=== PATIENT | male | born 1965 | race Caucasian/White ===

== ENCOUNTER 2022-07-26 13:23 | Emergency (ER) | payer OTHER ==
[~2022-07-26] VITALS: Ht 180.3 cm; Wt 120.2 kg
--- NOTE | 2022-07-26 13:29 | NUR ---
Placed in room 8 . Placed on panel monitor, blood pressure machine and pulse oximeter. To gown for exam. Side rails up. Report given to .
[2022-07-26 13:36] VITALS: BP_SYST 120
--- NOTE | 2022-07-26 13:51 | NUR ---
RECEIVED REPORT FROM PATRICIA AND WILL ASSUME CARE OF PT. PT HAVING BLOOD DRAWN AND EKG BEING DONE AT THIS TIME.
--- NOTE | 2022-07-26 13:55 | NUR ---
PT STATES THAT DR RESENDIZ TOLD HIM TO COME TO ER YESTERDAY DUE TO NEW ONSET AFIB, PT STATES THAT HE DIDN'T WANT TO COME BUT HIS MADE HIM. STILL HAVING SOME PALPITATIONS AND FLUTTERING IN CHEST. DENIES ANY CHEST PAIN. PT STATES DR RESENDIZ REFERRED HIM TO A [facility] BUT HE HAS NOT MADE AN APPT YET.
[2022-07-26] MEDS ORDERED: dilTIAZem HCL IVP 5 MG/ML VIAL IVP ONE (14:00)
[2022-07-26] MEDS ORDERED: DILTIAZEM HCL 60 MG TABLET PO ONE (14:00)
[2022-07-26 14:11] VITALS: BP_SYST 134
--- NOTE | 2022-07-26 14:42 | NUR ---
HEPLOCK STARTED AND MEDS GIVEN ORDERED. ALL QUESTIONS ANSWERED, PT DENIES ANY PAIN
[2022-07-26 14:45] LABS: BASOPHILS # (AUTO) 0.2 K/uL (0.0-0.2); BASOPHILS % (AUTO) 1.2 % (0.0-2.0); EOSINOPHILS # (AUTO) 0.9 K/uL (0.0-0.4); EOSINOPHILS % (AUTO) 6.6 % (0.0-4.0); HEMOGLOBIN 14.9 g/dL (14.0-18.0); LYMPHOCYTES # (AUTO) 2.4 K/uL (1.0-5.5); LYMPHOCYTES % (AUTO) 18.1 % (20.5-51.5); MEAN CORPUSCULAR HEMOGLOBIN 30 pg (27-31); MEAN CORPUSCULAR HGB CONC 34 % (32-36); MEAN CORPUSCULAR VOLUME 88 fL (79.0-98.0); MONOCYTES # (AUTO) 1.2 K/uL (0.0-1.0); MONOCYTES % (AUTO) 9.4 % (1.7-9.3); NEUTROPHILS # (AUTO) 8.4 K/uL (1.8-7.7); NEUTROPHILS % (AUTO) 64.7 % (40.0-70.0); PLATELET COUNT (AUTO) 257 K/uL (130-430); RED BLOOD CELL COUNT(AUTO) 4.98 MIL/uL (4.2-6.2); RED CELL DISTRIBUTION WIDTH 14.3 % (9.0-15.0)
[2022-07-26 14:55] LABS: ANION GAP 7 (5-15); CHLORIDE 105 mmol/L (98-107); CREATININE 1.26 mg/dL (0.55-1.30); GLUCOSE 123 mg/dL (70-99); UREA NITROGEN, BLOOD 24 mg/dL (8-21)
[2022-07-26] MEDS ORDERED: SEMA0.25 SQ (15:00)
[2022-07-26] MEDS ORDERED: LOVA40TA75 PO (15:00)
[2022-07-26] MEDS ORDERED: MONT-40 PO (15:00)
[2022-07-26] MEDS ORDERED: EFF37 PO (15:00)
[2022-07-26] MEDS ORDERED: CARV12.548 PO (15:00)
[2022-07-26] MEDS ORDERED: FEXO-25 PO (15:00)
[2022-07-26] MEDS ORDERED: INSU100V9 SQ (15:00)
[2022-07-26] MEDS ORDERED: INSU100I40 (15:00)
[2022-07-26] MEDS ORDERED: CAPT25TA3 PO (15:00)
[2022-07-26] MEDS ORDERED: APIX5TAB4 PO (15:00)
[2022-07-26] MEDS ORDERED: METF-518 PO (15:00)
[2022-07-26] MEDS ORDERED: ALBMDI INH (15:00)
[2022-07-26] MEDS ORDERED: EMPA25TA PO (15:00)
--- NOTE | 2022-07-26 15:00 | NUR ---
Medication reconciliation completed with information provided by PATIENT. Any prior medication reconciliation on file was reviewed and corrected.
[2022-07-26 15:01] LABS: INR 1.1 (0.80-1.20)
[2022-07-26 15:04] LABS: ALANINE AMINOTRANSFERASE 19 U/L (12-78); ALBUMIN 3.5 g/dL (3.4-4.8); ASPARTATE AMINOTRANSFERASE 12 U/L (10-37); GFR AFRICAN AMERICAN 76 mL/min (>90); TOTAL BILIRUBIN 0.5 mg/dL (0.0-1.0)
[2022-07-26] MEDS ORDERED: DILT180C66 PO (15:28)
--- NOTE | 2022-07-26 15:42 | NUR ---
Patient given written and verbal discharge instructions and verbalizes understanding. ER MD discussed with patient the results and treatment provided. Patient in stable condition. ID arm band removed. IV catheter removed intact and dressing applied, no active bleeding. Rx of CARDIZEM CD given. Patient educated on pain management and to follow up with PMD. Pain Scale 0/10. Opportunity for questions provided and answered. Medication side effect fact sheet provided.
[2022-07-28] MEDS ORDERED: METF-380 PO (18:16)
[2022-07-28] MEDS ORDERED: LOVA40TA75 PO (18:16)
[2022-07-30] MEDS ORDERED: VENL37.55 PO (14:14)
== END 2022-07-26 15:42 | disposition home or self-care (01) ==
LOC: SED 13:23
DX: I48.91 Unspecified atrial fibrillation (principal); R00.2 Palpitations; R53.1 Weakness; J45.909 Unspecified asthma, uncomplicated; I10 Essential (primary) hypertension; Z79.4 Long term (current) use of insulin; Z79.899 Other long term (current) drug therapy
CPT/HCPCS: 99285; 96374; 71045; 80053; 85025; 85610; 85730; 84484; 36415; 93005; J3490